=== PATIENT | female | born 1955 | race Two or more races ===

== ENCOUNTER 2024-09-15 14:41 | Outpatient (AMB) | payer MEDICARE, SELFPAY ==
--- NOTE | 2024-09-15 15:14 | ORTHONT_ITS ---
Vital signs 09/15/24 15:18 Height 1.55 m Height Method Stated Weight Measurement Method Standing Scale BP 124/76 Blood Pressure Source Automatic Cuff Blood Pressure Location Right Upper Arm Position Sitting Respiration 18 Pulse 86 Pulse Source Monitor Temp 97.8 F Temp Source Temporal Artery Scan Pulse Oximetry (%) 95 Oxygen Delivery Method Room Air Med/Allergies Allergies & Medications Allergies No Known Allergies Allergy (Verified 09/15/24 15:18) Medication Reconciliation amlodipine 5 mg tablet 5 mg PO QDAY 05/26/21 [History Confirmed 09/15/24] atenolol 50 mg tablet 50 mg PO QDAY 05/26/21 [History Confirmed 09/15/24] atorvastatin 20 mg tablet 20 mg PO QDAY 05/26/21 [History Confirmed 09/15/24] gabapentin 600 mg tablet 600 mg PO TID 05/26/21 [History Confirmed 09/15/24] glipizide 10 mg tablet 10 mg PO BID 05/26/21 [History Confirmed 09/15/24] levothyroxine 50 mcg tablet 50 mcg PO QDAY 05/26/21 [History Confirmed 09/15/24] omeprazole 20 mg capsule,delayed release 20 mg PO DAILY 05/26/21 [History Confirmed 09/15/24] empagliflozin 12.5 mg-linaglipt 2.5 mg-metform ER 1,000 mg tablet,24hr 1 tab PO BID 08/27/24 [History Confirmed 09/15/24] ezetimibe 10 mg tablet 10 mg PO HS 08/27/24 [History Confirmed 09/15/24] acetaminophen 500 mg tablet (Acetaminophen Extra Strength) 1,000 mg (2 x 500 mg) PO Q6H PRN pain #90 tabs 08/31/24 [Rx Confirmed 09/15/24] aspirin 81 mg tablet,delayed release 81 mg PO BID #60 tabs 08/31/24 [Rx Confirm ed 09/15/24] cyclobenzaprine 5 mg tablet 5 mg PO TID PRN muscle spasm #60 tabs 08/31/24 [Rx Confirmed 09/15/24] doxycycline hyclate 100 mg tablet 100 mg PO BID #14 tabs 08/31/24 [Rx Confirmed 09/15/24] gabapentin 300 mg capsule 300 mg PO .qhs #30 caps 08/31/24 [Rx Confirmed 09/15/24] sennosides 8.6 mg-docusate sodium 50 mg tablet (Senna-S) 1 tab-cap PO QDAY #30 tabs 08/31/24 [Rx Confirmed 09/15/24] hydrocodone 7.5 mg-acetaminophen 325 mg tablet 1 tab PO Q6H PRN pain #28 tabs 09/15/24 [Rx] Subjective Visit Visit for: follow up visit and knee Immunization / Flu Flu Vaccine in the Last 12 Months: Yes Flu Vaccine Exclusion Criteria: No Exclusion Criteria and Already Received History of Present Illness Chief complaint: PRE OP LEFT TKA Patient is a pleasant 60-year-old female with bilateral knee pain worse on the right. She is 2 weeks s/p right tka and is doing well Personal History Occupation: DISABLED Hobbies: WALKING, GARDENING Red flag PMH: none Pain Pain level (0-10): 10 Pain duration: CONSTANT Pain location: inside (medial), outside (lateral), anterior and posterior Pain quality: sharp, dull and aching Pain timing: night and increases with activity Associated signs & symptoms: stiffness Ambulatory data Ambulatory device: cane and none Treatments Improvement with previous injections: No Improvement with PT: No Improvement with NSAIDS: no Review of Systems Review of Systems: All systems negative unless otherwise noted in HPI. Exam Exam Patient is in no acute distress and is cooperative with the examination today. Breathing is nonlabored. In no respiratory distress. Bilateral extremities were evaluated and demonstrates sensation intact to light touch. Palpable pedal pulses are present. No significant edema is present. Bilateral hips were examined. The patient has no pain with log roll of the hips. Internal rotation to 30 degrees and external rotation to 30 degrees is painless. Negative FADIR. The left knee was examined. The left knee is in [varus] alignment. Range of m otion from [0-115] degrees. Knee is stable to varus and valgus as well as AP translation with <5mm. Patient has a [negative] McMurrays. There is [no] pain with patellofemoral compression and [no] crepitus noted. The knee is [tender] to palpation [medially]. Right knee incision is c/d/i Assessment and Plan Problem List (1) Arthritis of right knee: Status: Acute Plan: Patient is a pleasant 60-year-old female with bilateral knee arthritis of significant severity. She is doing well. We have refilled her pain meds (2) Arthritis of left knee: Status: Acute Advanced Care Planning Discussion Advance care planning discussed with:: patient Office Procedures GNS Level of Care Nursing/Assessment Patient Status: Established Patient Nursing Assessment/Reassesment: Medication Reconciliation, Update PMH in EMR and Vital Signs Coordination of Care: Complex Care and Chronic Disease 1-5, Education Complex Pt/Fam, Consent,records obtained, informed consent, Results/Orders obtained and Staff clarify orders Special Needs: Language special needs Established Patient Charge Established Patient Point Assignment: 95 Established Patient Point Charge: EP Level 3 (80-115) Past Medical History Past Medical History Have you ever been diagnosed with any of the following: Neurological Problems Seizures: No Cardiology Problems Hypercholesterolemia: Yes Congestive Heart Failure: No Hypertension: Yes Respiratory Problems Chronic Obstructive Pulmonary Disease (COPD): No Smoking: No Smoking Cessation Counseling: No Smoking Exposure: No Stomache/Intestinal Problems Hepatitis: No Gastroesophageal Reflux Disease: Yes Genital/Urinary Problems Renal Disease: No Reproductive Problems Previous Pregnancies: Yes Musculoskeletal Problems Arthritis: Yes Endocrine Problems Diabetes Mellitus Type 1: No Diabetes Mellitus Type 2: Yes Hypothyroidism: Yes Other Problems Hospitalization: Yes (surgey) Shingles: No Falls: No Blood Transfusions: No Blood Transfusion Reaction: No Anesthesia Reactions: No Chemotherapy: No Radiation Therapy: No MRSA: No Chicken Pox: Yes Cancer: No Surgical History Thyroidectomy: Yes (lobectomy)
[2024-09-15 15:18] VITALS: BP 124/76; PULSE 86; RESP 18; TEMP 36.6; O2SAT 95
== END 2024-09-15 15:45 | disposition home or self-care (01) ==
LOC: HODSRG 14:41
PROVIDERS: Supervising Provider Orthopaedic Surgery Adult Reconstructive Orthopaedic Surgery; Visit Provider Orthopaedic Surgery Adult Reconstructive Orthopaedic Surgery
DX: M17.0 Bilateral primary osteoarthritis of knee (principal); Z96.651 Presence of right artificial knee joint
CPT/HCPCS: 99213; G0463

== ENCOUNTER 2024-10-13 14:54 | Outpatient (AMB) | payer MEDICARE, SELFPAY ==
--- NOTE | 2024-10-13 15:11 | PD.ORTHCLVIS ---
Vital signs 10/13/24 15:12 Height 1.55 m Height Method Stated Weight 74.503 kg Weight Measurement Method Standing Scale BMI 31.0 BP 146/84 H Blood Pressure Source Automatic Cuff Blood Pressure Location Right Upper Arm Position Sitting Respiration 18 Pulse 83 Pulse Source Monitor Temp 97.3 F Temp Source Temporal Artery Scan Pulse Oximetry (%) 97 Oxygen Delivery Method Room Air Med/Allergies Allergies & Medications Allergies No Known Allergies Allergy (Verified 10/13/24 15:12) Medication Reconciliation amlodipine 5 mg tablet 5 mg PO QDAY 05/26/21 [History Confirmed 10/13/24] atenolol 50 mg tablet 50 mg PO QDAY 05/26/21 [History Confirmed 10/13/24] atorvastatin 20 mg tablet 20 mg PO QDAY 05/26/21 [History Confirmed 10/13/24] gabapentin 600 mg tablet 600 mg PO TID 05/26/21 [History Confirmed 10/13/24] glipizide 10 mg tablet 10 mg PO BID 05/26/21 [History Confirmed 10/13/24] levothyroxine 50 mcg tablet 50 mcg PO QDAY 05/26/21 [History Confirmed 10/13/24] omeprazole 20 mg capsule,delayed release 20 mg PO DAILY 05/26/21 [History Confirmed 10/13/24] empagliflozin 12.5 mg-linaglipt 2.5 mg-metform ER 1,000 mg tablet,24hr 1 tab PO BID 08/27/24 [History Confirmed 10/13/24] ezetimibe 10 mg tablet 10 mg PO HS 08/27/24 [History Confirmed 10/13/24] acetaminophen 500 mg tablet (Acetaminophen Extra Strength) 1,000 mg (2 x 500 mg) PO Q6H PRN pain #90 tabs 08/31/24 [Rx Confirmed 10/13/24] aspirin 81 mg tablet,delayed release 81 mg PO BID #60 tabs 08/31/24 [Rx Confirmed 10/13/24] cyclobenzaprine 5 mg tablet 5 mg PO TID PRN muscle spasm #60 tabs 08/31/24 [Rx Confirmed 10/13/24] doxycycline hyclate 100 mg tablet 100 mg PO BID #14 tabs 08/31/24 [Rx Confirmed 10/13/24] gabapentin 300 mg capsule 300 mg PO .qhs #30 caps 08/31/24 [Rx Confirmed 10/13/24] sennosides 8.6 mg-docusate sodium 50 mg tablet (Senna-S) 1 tab-cap PO QDAY #30 tabs 08/31/24 [Rx Confirmed 10/13/24] hydrocodone 7.5 mg-acetaminophen 325 mg tablet 1 tab PO Q6H PRN pain #28 tabs 09/23/24 [Rx Confirmed 10/13/24] cyclobenzaprine 5 mg tablet 5 mg PO TID PRN muscle spasm #28 tabs 10/02/24 [Rx Confirmed 10/13/24] hydrocodone 7.5 mg-acetaminophen 325 mg tablet 1 tab PO Q6H PRN pain #28 tabs 10/02/24 [Rx Confirmed 10/13/24] Subjective Visit Visit for: follow up visit, post op #2 and knee Immunization / Flu Flu Vaccine in the Last 12 Months: No Flu Vaccine Exclusion Criteria: No Exclusion Criteria History of Present Illness Chief complaint: FOLLOW UP ON KNEE SX Patient is a pleasant 60-year-old female with bilateral knee pain worse on the right. She is 6 weeks s/p right tka and is doing well Personal History Occupation: UNEMPLOYED Hobbies: WALKING, GARDENING Red flag PMH: none Pain Pain level (0-10): 7 Pain duration: COMES AND GOES Pain location: inside (medial), outside (lateral), anterior and posterior Pain quality: dull and aching Pain timing: increases with activity Associated signs & symptoms: stiffness Ambulatory data Ambulatory device: none Treatments Improvement with previous injections: No Improvement with PT: No Improvement with NSAIDS: n/a Review of Systems Review of Systems: All systems negative unless otherwise noted in HPI. Exam Exam Patient is in no acute distress and is cooperative with the examination today. Breathing is nonlabored. In no respiratory distress. Bilateral extremities were evaluated and demonstrates sensation intact to light touch. Palpable pedal pulses are present. No significant edema is present. Bilateral hips were examined. The patient has no pain with log roll of the hips. Internal rotation to 30 degrees and external rotation to 30 degrees is painless. Negative FADIR. The left knee was examined. The left knee is in [varus] alignment. Range of motion from [0-115] degrees. Knee is stable to varus and valgus as well as AP translation with <5mm. Patient has a [negative] McMurrays. There is [no] pain with patellofemoral compression and [no] crepitus noted. The knee is [tender] to palpation [medially]. Right knee incision is c/d/i. Range of motion is 0 to 105 degrees Assessment and Plan Problem List (1) Arthritis of right knee: Status: Acute Plan: Patient is a pleasant 60-year-old female with bilateral knee arthritis of significant severity. She is doing well. We have refilled her pain meds Will see the patient back in approximately 8 weeks (2) Arthritis of left knee: Status: Acute Advanced Care Planning Discussion Advance care planning discussed with:: patient Office Procedures GNS Level of Care Nursing/Assessment Patient Status: Established Patient Nursing Assessment/Reassesment: Medication Reconciliation, Update PMH in EMR and Vital Signs Coordination of Care: Complex Care and Chronic Disease 1-5, Education Complex Pt/Fam, Consent,records obtained, informed consent, Results/Orders obtained and Staff clarify orders Special Needs: Language special needs Established Patient Charge Established Patient Point Assignment: 95 Established Patient Point Charge: EP Level 3 (80-115) Past Medical History Past Medical History Have you ever been diagnosed with any of the following: Neurological Problems Seizures: No Cardiology Problems Hypercholesterolemia: Yes Congestive Heart Failure: No Hypertension: Yes Respiratory Problems Chronic Obstructive Pulmonary Disease (COPD): No Smoking: No Smoking Cessation Counseling: No Smoking Exposure: No Stomache/Intestinal Problems Hepatitis: No Gastroesophageal Reflux Disease: Yes Genital/Urinary Problems Renal Disease: No Reproductive Problems Previous Pregnancies: Yes Musculoskeletal Problems Arthritis: Yes Endocrine Problems Diabetes Mellitus Type 1: No Diabetes Mellitus Type 2: Yes Hypothyroidism: Yes Other Problems Hospitalization: Yes (surgey) Shingles: No Falls: No Blood Transfusions: No Blood Transfusion Reaction: No Anesthesia Reactions: No Chemotherapy: No Radiation Therapy: No MRSA: No Chicken Pox: Yes Cancer: No Surgical History Thyroidectomy: Yes (lobectomy)
[2024-10-13 15:12] VITALS: BP 146/84; PULSE 83; RESP 18; TEMP 36.3; O2SAT 97; BMI 31.0
== END 2024-10-13 15:33 | disposition home or self-care (01) ==
LOC: HODSRG 14:54
PROVIDERS: PCP Internal Medicine; Referring Provider Internal Medicine; Supervising Provider Orthopaedic Surgery Adult Reconstructive Orthopaedic Surgery; Visit Provider Orthopaedic Surgery Adult Reconstructive Orthopaedic Surgery
DX: M17.0 Bilateral primary osteoarthritis of knee (principal); I10 Essential (primary) hypertension; E78.00 Pure hypercholesterolemia, unspecified; Z96.651 Presence of right artificial knee joint
CPT/HCPCS: 99213; G0463

== ENCOUNTER 2024-12-11 14:56 | Outpatient (AMB) | payer MEDICARE, SELFPAY ==
--- NOTE | 2024-12-11 15:39 | ORTHONT_ITS ---
Vital signs 12/11/24 15:40 Height 1.55 m Height Method Stated Weight 93.213 kg Weight Measurement Method Standing Scale BMI 38.7 BP 155/96 H Blood Pressure Source Automatic Cuff Blood Pressure Location Left Upper Arm Position Sitting Respiration 18 Pulse 81 Pulse Source Monitor Temp 96.8 F Temp Source Temporal Artery Scan Pulse Oximetry (%) 99 Oxygen Delivery Method Room Air Med/Allergies Allergies & Medications Allergies No Known Allergies Allergy (Verified 12/11/24 15:40) Medication Reconciliation amlodipine 5 mg tablet 5 mg PO QDAY 05/26/21 [History Confirmed 12/11/24] atenolol 50 mg tablet 50 mg PO QDAY 05/26/21 [History Confirmed 12/11/24] atorvastatin 20 mg tablet 20 mg PO QDAY 05/26/21 [History Confirmed 12/11/24] gabapentin 600 mg tablet 600 mg PO TID 05/26/21 [History Confirmed 12/11/24] glipizide 10 mg tablet 10 mg PO BID 05/26/21 [History Confirmed 12/11/24] levothyroxine 50 mcg tablet 50 mcg PO QDAY 05/26/21 [History Confirmed 12/11/24] omeprazole 20 mg capsule,delayed release 20 mg PO DAILY 05/26/21 [History Confirmed 12/11/24] empagliflozin 12.5 mg-linaglipt 2.5 mg-metform ER 1,000 mg tablet,24hr 1 tab PO BID 08/27/24 [History Confirmed 12/11/24] ezetimibe 10 mg tablet 10 mg PO HS 08/27/24 [History Confirmed 12/11/24] acetaminophen 500 mg tablet (Acetaminophen Extra Strength) 1,000 mg (2 x 500 mg) PO Q6H PRN pain #90 tabs 08/31/24 [Rx Confirmed 12/11/24] aspirin 81 mg tablet,delayed release 81 mg PO BID #60 tabs 08/31/24 [Rx Confirmed 12/11/24] cyclobenzaprine 5 mg tablet 5 mg PO TID PRN muscle spasm #60 tabs 08/31/24 [Rx Confirmed 12/11/24] doxycycline hyclate 100 mg tablet 100 mg PO BID #14 tabs 08/31/24 [Rx Confirmed 12/11/24] gabapentin 300 mg capsule 300 mg PO .qhs #30 caps 08/31/24 [Rx Confirmed 12/11/24] sennosides 8.6 mg-docusate sodium 50 mg tablet (Senna-S) 1 tab-cap PO QDAY #30 tabs 08/31/24 [Rx Confirmed 12/11/24] hydrocodone 7.5 mg-acetaminophen 325 mg tablet 1 tab PO Q6H PRN pain #28 tabs 09/23/24 [Rx Confirmed 12/11/24] hydrocodone 7.5 mg-acetaminophen 325 mg tablet 1 tab PO Q6H PRN pain #28 tabs 10/02/24 [Rx Confirmed 12/11/24] cyclobenzaprine 5 mg tablet 5 mg PO TID PRN muscle spasm #28 tabs 12/11/24 [Rx] oxycodone 5 mg tablet 5 mg PO Q6H PRN pain #28 tabs 12/11/24 [Rx] Exam Exam Patient is in no acute distress and is cooperative with the examination today. Breathing is nonlabored. In no respiratory distress. Bilateral extremities were evaluated and demonstrates sensation intact to light touch. Palpable pedal pulses are present. No significant edema is present. Bilateral hips were examined. The patient has no pain with log roll of the hips. Internal rotation to 30 degrees and external rotation to 30 degrees is painless. Negative FADIR. The left knee was examined. The left knee is in [varus] alignment. Range of motion from [0-115] degrees. Knee is stable to varus and valgus as well as AP translation with <5mm. Patient has a [negative] McMurrays. There is [no] pain with patellofemoral compression and [no] crepitus noted. The knee is [tender] to palpation [medially]. Right knee incision is c/d/i. Range of motion is 0 to 105 degrees Assessment and Plan Problem List (1) Arthritis of right knee: Status: Acute Plan: Patient is a pleasant 60-year-old female with bilateral knee arthritis of significant severity. She is doing well. We have refilled her pain meds Will see the patient back in approximately 8 weeks (2) Arthritis of left knee: Status: Acute Advanced Care Planning Discussion Advance care planning discussed with:: patient Office Procedures GNS Level of Care Nursing/Assessment Patient Status: Established Patient Nursing Assessment/Reassesment: Medication Reconciliation, Update PMH in EMR and Vital Signs Coordination of Care: Complex Care and Chronic Disease 1-5, Education Complex Pt/Fam, Consent,records obtained, informed consent, Results/Orders obtained and Staff clarify orders Established Patient Charge Established Patient Point Assignment: 95 Established Patient Point Charge: EP Level 3 (80-115) MA Intake Visit Data Collection New Patient or Established: Established Patient (seen at [facility] within 3 years) Reason for Visit:: FOLLOW UP Seen by Clinical Staff ONLY (RN/MA): No [employer] Required: No PCP or OBGYN visit in last 3 months: Yes Hx Now: No Do You Feel Safe at Home: Yes Authorities Contacted: N/A Questionairres Past Medical History Past Medical History Have you ever been diagnosed with any of the following: Neurological Problems Seizures: No Cardiology Problems Hypercholesterolemia: Yes Congestive Heart Failure: No Hypertension: Yes Respiratory Problems Chronic Obstructive Pulmonary Disease (COPD): No Smoking: No Smoking Cessation Counseling: No Smoking Exposure: No Stomache/Intestinal Problems Hepatitis: No Gastroesophageal Reflux Disease: Yes Genital/Urinary Problems Renal Disease: No Reproductive Problems Previous Pregnancies: Yes Musculoskeletal Problems Arthritis: Yes Endocrine Problems Diabetes Mellitus Type 1: No Diabetes Mellitus Type 2: Yes Hypothyroidism: Yes Other Problems Hospitalization: Yes (surgey) Shingles: No Falls: No Blood Transfusions: No Blood Transfusion Reaction: No Anesthesia Reactions: No Chemotherapy: No Radiation Therapy: No MRSA: No Chicken Pox: Yes Cancer: No Surgical History Thyroidectomy: Yes (lobectomy) Subjective Visit Visit for: follow up visit Immunization / Flu Flu Vaccine in the Last 12 Months: No Flu Vaccine Exclusion Criteria: No Exclusion Criteria History of Present Illness Chief complaint: s/p R TKA Patient is a pleasant 60-year-old female with bilateral knee pain worse on the right. She is 12 weeks s/p right tka and is doing well Pain Pain level (0-10): 6 Pain duration: ON AND OFF Pain location: inside (medial) Pain quality: sharp, dull and aching Pain timing: increases with activity Associated signs & symptoms: stiffness Ambulatory data Ambulatory device: cane Treatments Improvement with previous injections: No Improvement with PT: No Improvement with NSAIDS: no Review of Systems Review of Systems: All systems negative unless otherwise noted in HPI.
[2024-12-11 15:40] VITALS: BP 155/96; PULSE 81; RESP 18; TEMP 36; O2SAT 99; BMI 38.7
== END 2024-12-11 15:49 | disposition home or self-care (01) ==
PROVIDERS: PCP Internal Medicine; Referring Provider Internal Medicine; Supervising Provider Orthopaedic Surgery Adult Reconstructive Orthopaedic Surgery; Visit Provider Orthopaedic Surgery Adult Reconstructive Orthopaedic Surgery
DX: M17.0 Bilateral primary osteoarthritis of knee (principal); Z96.651 Presence of right artificial knee joint; I10 Essential (primary) hypertension; E78.00 Pure hypercholesterolemia, unspecified; K21.9 Gastro-esophageal reflux disease without esophagitis; E11.9 Type 2 diabetes mellitus without complications
CPT/HCPCS: 99213; G0463

== ENCOUNTER 2025-05-04 13:46 | Outpatient (AMB) | payer MEDICARE, SELFPAY ==
--- NOTE | 2025-05-04 13:58 | PD.ORTHCLVIS ---
Vital signs 05/04/25 13:59 Height 1.55 m Height Method Stated Weight 75.41 kg Weight Measurement Method Standing Scale BMI 31.4 BP 148/76 H Blood Pressure Source Automatic Cuff Blood Pressure Location Left Upper Arm Position Sitting Respiration 18 Pulse 88 Pulse Source Monitor Temp 97.9 F Temp Source Temporal Artery Scan Pulse Oximetry (%) 97 Oxygen Delivery Method Room Air Med/Allergies Allergies & Medications Allergies No Known Allergies Allergy (Verified 05/04/25 14:00) Medication Reconciliation amlodipine 5 mg tablet 5 mg PO QDAY 05/26/21 [History Confirmed 05/04/25] atenolol 50 mg tablet 50 mg PO QDAY 05/26/21 [History Confirmed 05/04/25] atorvastatin 20 mg tablet 20 mg PO QDAY 05/26/21 [History Confirmed 05/04/25] gabapentin 600 mg tablet 600 mg PO TID 05/26/21 [History Confirmed 05/04/25] glipizide 10 mg tablet 10 mg PO BID 05/26/21 [History Confirmed 05/04/25] levothyroxine 50 mcg tablet 50 mcg PO QDAY 05/26/21 [History Confirmed 05/04/25] omeprazole 20 mg capsule,delayed release 20 mg PO DAILY 05/26/21 [History Confirmed 05/04/25] empagliflozin 12.5 mg-linaglipt 2.5 mg-metform ER 1,000 mg tablet,24hr 1 tab PO BID 08/27/24 [History Confirmed 05/04/25] ezetimibe 10 mg tablet 10 mg PO HS 08/27/24 [History Confirmed 05/04/25] acetaminophen 500 mg tablet (Acetaminophen Extra Strength) 1,000 mg (2 x 500 mg) PO Q6H PRN pain #90 tabs 08/31/24 [Rx Confirmed 05/04/25] aspirin 81 mg tablet,delayed release 81 mg PO BID #60 tabs 08/31/24 [Rx Confirmed 05/04/25] cyclobenzaprine 5 mg tablet 5 mg PO TID PRN muscle spasm #60 tabs 08/31/24 [Rx Confirmed 05/04/25] doxycycline hyclate 100 mg tablet 100 mg PO BID #14 tabs 08/31/24 [Rx Confirmed 05/04/25] gabapentin 300 mg capsule 300 mg PO .qhs #30 caps 08/31/24 [Rx Confirmed 05/04/25] sennosides 8.6 mg-docusate sodium 50 mg tablet (Senna-S) 1 tab-cap PO QDAY #30 tabs 08/31/24 [Rx Confirmed 05/04/25] hydrocodone 7.5 mg-acetaminophen 325 mg tablet 1 tab PO Q6H PRN pain #28 tabs 09/23/24 [Rx Confirmed 05/04/25] hydrocodone 7.5 mg-acetaminophen 325 mg tablet 1 tab PO Q6H PRN pain #28 tabs 10/02/24 [Rx Confirmed 05/04/25] cyclobenzaprine 5 mg tablet 5 mg PO TID PRN muscle spasm #28 tabs 12/11/24 [Rx Confirmed 05/04/25] oxycodone 5 mg tablet 5 mg PO Q6H PRN pain #28 tabs 12/11/24 [Rx Confirmed 05/04/25] Exam Exam Patient is in no acute distress and is cooperative with the examination today. Breathing is nonlabored. In no respiratory distress. Bilateral extremities were evaluated and demonstrates sensation intact to light touch. Palpable pedal pulses are present. No significant edema is present. Bilateral hips were examined. The patient has no pain with log roll of the hips. Internal rotation to 30 degrees and external rotation to 30 degrees is painless. Negative FADIR. The left knee was examined. The left knee is in [varus] alignment. Range of motion from [0-115] degrees. Knee is stable to varus and valgus as well as AP translation with <5mm. Patient has a [negative] McMurrays. There is [no] pain with patellofemoral compression and [no] crepitus noted. The knee is [tender] to palpation [medially]. Right knee incision is c/d/i. Range of motion is 0 to 105 degrees Assessment and Plan Problem List (1) Arthritis of right knee: Status: Acute Plan: Patient is a pleasant 60-year-old female with bilateral knee arthritis of significant severity. We will see her back in approximately 1-2 years (2) Arthritis of left knee: Status: Acute Advanced Care Planning Discussion Advance care planning discussed with:: patient Office Procedures GNS Level of Care Nursing/Assessment Patient Status: Established Patient Nursing Assessment/Reassesment: Medication Reconciliation, Update PMH in EMR and Vital Signs Coordination of Care: Complex Care and Chronic Disease 1-5, Education Complex Pt/Fam, Consent,records obtained, informed consent, Results/Orders obtained and Staff clarify orders Established Patient Charge Established Patient Point Assignment: 95 Established Patient Point Charge: EP Level 3 (80-115) MA Intake Visit Data Collection New Patient or Established: Established Patient (seen at [facility] within 3 years) Reason for Visit:: FOLLOW UP Seen by Clinical Staff ONLY (RN/MA): No PCP or OBGYN visit in last 3 months: Yes Hx Now: No Do You Feel Safe at Home: Yes Authorities Contacted: N/A Questionairres Past Medical History Past Medical History Have you ever been diagnosed with any of the following: Neurological Problems Seizures: No Cardiology Problems Hypercholesterolemia: Yes Congestive Heart Failure: No Hypertension: Yes Respiratory Problems Chronic Obstructive Pulmonary Disease (COPD): No Smoking: No Smoking Cessation Counseling: No Smoking Exposure: No Stomache/Intestinal Problems Hepatitis: No Gastroesophageal Reflux Disease: Yes Genital/Urinary Problems Renal Disease: No Reproductive Problems Previous Pregnancies: Yes Musculoskeletal Problems Arthritis: Yes Endocrine Problems Diabetes Mellitus Type 1: No Diabetes Mellitus Type 2: Yes Hypothyroidism: Yes Other Problems Hospitalization: Yes (surgey) Shingles: No Falls: No Blood Transfusions: No Blood Transfusion Reaction: No Anesthesia Reactions: No Chemotherapy: No Radiation Therapy: No MRSA: No Chicken Pox: Yes Cancer: No Surgical History Thyroidectomy: Yes (lobectomy) Subjective Visit Visit for: follow up visit Immunization / Flu Flu Vaccine in the Last 12 Months: No Flu Vaccine Exclusion Criteria: No Exclusion Criteria History of Present Illness Chief complaint: s/p R TKA Patient is a pleasant 60-year-old female with bilateral knee pain worse on the right. She is 8 months postop and is doing well. She reports the pain is very well-controlled Pain Pain level (0-10): 6 Pain duration: COMES AND GOES Pain location: inside (medial) and anterior Pain quality: aching Pain timing: increases with activity Associated signs & symptoms: stiffness Ambulatory data Ambulatory device: none Treatments Improvement with previous injections: No Improvement with PT: No Improvement with NSAIDS: no Review of Systems Review of Systems: All systems negative unless otherwise noted in HPI.
[2025-05-04 13:59] VITALS: BP 148/76; PULSE 88; RESP 18; TEMP 36.6; O2SAT 97; BMI 31.4
== END 2025-05-04 14:08 | disposition home or self-care (01) ==
LOC: HODSRG 13:46
PROVIDERS: PCP Internal Medicine; Referring Provider Internal Medicine; Supervising Provider Orthopaedic Surgery Adult Reconstructive Orthopaedic Surgery; Visit Provider Orthopaedic Surgery Adult Reconstructive Orthopaedic Surgery
DX: M17.0 Bilateral primary osteoarthritis of knee (principal); M25.562 Pain in left knee; M25.561 Pain in right knee; Z96.651 Presence of right artificial knee joint; I10 Essential (primary) hypertension; E78.00 Pure hypercholesterolemia, unspecified; K21.9 Gastro-esophageal reflux disease without esophagitis; E11.9 Type 2 diabetes mellitus without complications; E03.9 Hypothyroidism, unspecified
CPT/HCPCS: 99213; G0463